=== PATIENT | male | born 1955 | race Caucasian/White ===

== ENCOUNTER 2019-12-23 17:44 | Emergency (ER) | payer OTHER ==
[~2019-12-23] VITALS: Ht 172.7 cm; Wt 83.9 kg
[~2019-12-23 17:44] MED LIST: ALBU90OI INH; AMIT25; AZIT250 PO; CETI5; DIPH50 PO; ENAL10 PO; HYDACE5 PO; HYDHOMSY PO; NAPR500 PO; PRIM250 PO; ROSU5; ROXICODONE5 MG; RXHYDGUAS PO; TAMS.4ER PO; TERB250; [UNRECOGNIZED DRUG - CODE]
== END 2019-12-23 20:33 | disposition home or self-care (01) ==
LOC: ER 17:44
DX: S61.217A Laceration without foreign body of left little finger without damage to nail, initial encounter (principal); Z88.5 Allergy status to narcotic agent; Z23 Encounter for immunization; Z79.899 Other long term (current) drug therapy; W45.8XXA Other foreign body or object entering through skin, initial encounter
CPT/HCPCS: 12001; 90471; 90714; 99282-25

== ENCOUNTER 2021-01-23 11:33 | Day surgery (SDC) | payer MEDICARE, OTHER ==
[~2021-01-23] VITALS: Ht 172.7 cm; Wt 86.9 kg
[~2021-01-23 11:33] MED LIST changes: +FLONASE ALLERG9.9 M2 INH; +GABA300 PO; +TERB250 PO; +ZYRTEC10 M2 PO
== END 2021-01-23 13:46 | disposition home or self-care (01) ==
LOC: ORSCSDS 11:33
PROVIDERS: Internal Medicine Gastroenterology
PROC: 0DBK8ZX Excision of Ascending Colon, Via Natural or Artificial Opening Endoscopic, Diagnostic (ICD-10-PCS; principal; 2021-01-23 12:45)
PROC: 0DBM8ZX Excision of Descending Colon, Via Natural or Artificial Opening Endoscopic, Diagnostic (ICD-10-PCS; principal; 2021-01-23 12:45)
DX: Z12.11 Encounter for screening for malignant neoplasm of colon (principal); Z86.010 Personal history of colon polyps; D12.2 Benign neoplasm of ascending colon; D12.4 Benign neoplasm of descending colon; K57.30 Diverticulosis of large intestine without perforation or abscess without bleeding; Z79.899 Other long term (current) drug therapy
CPT/HCPCS: 88305; J2704; J7120

== ENCOUNTER 2021-02-26 11:11 | Day surgery (SDC) | payer MEDICARE, OTHER ==
[~2021-02-26] VITALS: Ht 172.7 cm; Wt 85.7 kg
[~2021-02-26 11:11] MED LIST changes: +Flonase 0.05% N16 GM; +ZYRTEC10 M4 PO
--- NOTE | 2021-02-26 13:32 | NUR ---
02/26/21 1332 Adrian Mccullough 1 MG EPI ADDED TO EACH OF THE FIRST 3 BAGS OF LR FOR IRRIGATION PER ORDER.
--- NOTE | 2021-02-26 14:48 | NUR ---
02/26/21 1448 Milli Lance PT. VERBALZIES FEELING HIS FINGERS ON HIS RIGHT HAND FEELING NUMB. PT. ALSO VERBALIZES HAVING A SORETHROAT. PT. DRINKING JUICE/WATER & ATE A FEW DENNIS CRACKERS. JHONNY AT PT. SIDE. PT. HAS CALL LIGHT WITHIN REACH. POLAR PACK INTACT.
== END 2021-02-26 15:45 | disposition home or self-care (01) ==
LOC: ORSCSDS 11:11
PROVIDERS: Orthopaedic Surgery
PROC: 0RNJ4ZZ Release Right Shoulder Joint, Percutaneous Endoscopic Approach (ICD-10-PCS; principal; 2021-02-26 13:30)
PROC: 0LM14ZZ Reattachment of Right Shoulder Tendon, Percutaneous Endoscopic Approach (ICD-10-PCS; principal; 2021-02-26 13:30)
DX: M75.121 Complete rotator cuff tear or rupture of right shoulder, not specified as traumatic (principal); M75.21 Bicipital tendinitis, right shoulder; M75.41 Impingement syndrome of right shoulder; M19.011 Primary osteoarthritis, right shoulder; Z79.899 Other long term (current) drug therapy
CPT/HCPCS: C1713; J0171; J0690; J1100; J2250; J2405; J2704; J3010; J7120

== ENCOUNTER 2021-11-26 10:02 | Day surgery (SDC) | payer MEDICARE, OTHER ==
[~2021-11-26] VITALS: Ht 167.6 cm; Wt 87.9 kg
[2021-11-26] MEDS ORDERED: LORA10ER (10:21)
--- NOTE | 2021-11-26 14:02 | NUR ---
11/26/21 1401 AYO NUNEZ PT VERBALIZES PAIN IS TOLERABLE, READY TO GET DRESSED AT 1355. PT TOLERATING PO LIQUIDS. PT DENIES NAUSEA. IV DISCONTINUED. PT DRESSED AND DCD VIA WHEELCHAIR.
== END 2021-11-26 14:02 | disposition home or self-care (01) ==
LOC: ORSCSDS 10:02
PROVIDERS: Orthopaedic Surgery
PROC: 0XP70YZ Removal of Other Device from Left Upper Extremity, Open Approach (ICD-10-PCS; principal; 2021-11-26 11:25)
DX: M25.532 Pain in left wrist (principal); T84.84XA Pain due to internal orthopedic prosthetic devices, implants and grafts, initial encounter; I10 Essential (primary) hypertension; E66.9 Obesity, unspecified; Z68.34 Body mass index [BMI] 34.0-34.9, adult; Z79.899 Other long term (current) drug therapy
CPT/HCPCS: A9270; J0690; J1100; J1885; J2250; J2405; J2704; J2795; J3010; J7120